=== PATIENT | female | born 1950 | race Hispanic/Latino ===

== ENCOUNTER 2017-09-06 09:51 | Emergency (ER) | payer BC, MEDICARE ==
[~2017-09-06] VITALS: Ht 160 cm; Wt 82.6 kg
[~2017-09-06 09:51] MED LIST: Aspirin PO; CELEBREX100 MG PO; FISH OIL 1,0001 EAC2; GLYBURIDE-METF1 EAC1 PO; LIPITOR20 MG PO; LISINOPRIL-HCT1 EACH PO; VITAMIN D1000 UNIT
--- OUTSIDE RECORDS SUMMARY | 2017-09-06 09:53 | XMS REPORT | Clinical Summary ---
Author Author NAY [facility] [employer] [facility] Address Unknown Phone Unavailable Care Team Providers Care Garbage Stoker Name Role Phone PCP Unavailable Allergies Active Allergy Reactions Severity Noted Date Comments Morphine 08/10/2017 Nausea Current Medications Not on file Active Problems Not on file Encounters Date Type Specialty Care Team Description 08/10/2017 Emergency Emergency Medicine Sherrill Alfaro, Chest pain, unspecified MD type (Primary Dx);Leg swelling;Leg numbness 08/10/2017 Orders Only General Internal Medicine after 09/05/2016 Social History Tobacco Use Types Packs/Day Years Used Date Never Assessed Sex Assigned at Date Recorded Not on file Last Filed Vital Signs Vital Sign Reading Time Taken Blood Pressure 113/58 08/10/2017 10:58 PM DATA ENTRY SPECIALIST Pulse 87 08/10/2017 10:58 PM DATA ENTRY SPECIALIST Temperature 36.6 C (97.8 F) 08/10/2017 10:58 PM DATA ENTRY SPECIALIST Respiratory Rate 17 08/10/2017 10:58 PM DATA ENTRY SPECIALIST Oxygen Saturation 99% 08/10/2017 10:58 PM DATA ENTRY SPECIALIST Inhaled Oxygen - - Concentration Weight 79.4 kg (175 lb) 08/10/2017 5:43 PM DATA ENTRY SPECIALIST Height 157.5 cm (5' 2") 08/10/2017 5:43 PM DATA ENTRY SPECIALIST Body Mass Index 32.01 08/10/2017 5:43 PM DATA ENTRY SPECIALIST Plan of Treatment Not on file Results * PERIPHERAL VASCULAR REPORT - SCAN (08/11/2017 7:20 AM) * ED ECG Interpretation (08/10/2017 10:37 PM) Narrative Sherrill Alfaro MD 08/10/2017 10:37 PM ECG/EKG Interpretation Date/Time: 08/10/2017 5:37 PM Performed by: SHERRILL ALFARO Authorized by: SHERRILL ALFARO The ECG was interpreted by ED physician. This ECG was not compared with previous ECG(s).The ECG is interpreted as sinus rhythm. Rate is normal rate. Heart rate is 83 BPM. Conduction: conduction normal. ST segments normal. Clinical Impression: non-specific ECG and abnormal ECGECG reviewed and does not meet STEMI criteria. Patient tolerance: Patient tolerated the procedure well with no immediate complications * Venous doppler legs bilateral (08/10/2017 10:15 PM) Component Value Ref Range Ejection Fraction Specimen Performing Laboratory [facility] Impressions Right Impression 1. There is no deep venous obstruction in the common femoral, profunda femoral, femoral, popliteal, posterior tibial or peroneal veins. 2. There is no superficial venous obstruction in the great saphenous vein. Left Impression 1. There is no deep venous obstruction in the common femoral, profunda femoral, femoral, popliteal, posterior tibial or peroneal veins. 2. There is no superficial venous obstruction in the great saphenous vein. Conclusions Summary Venous duplex imaging and compression of the bilateral lower extremities were performed. The veins were adequately visualized. The bilateral venous systems were patent and compressible with no evidence of thrombus. The venous Doppler waveforms were phasic with respiration . Signature Velocities are measured in cm/s ; Diameters are measured in cm Narrative PV LAB - Lower Extremities DVT Study Demographics Patient Name Raquel LANG of Study 08/10/2017 [id number] Visit Number [id number] Female Accession Number [id number] [facility] 1950 [id number] SonographerTonya K. Aniltawny Alfaro T Physician , FOSTER Procedure Type of Study: Veins: Lower Extremities DVT Study, VENOUS DOPPLER LEG, BILATERAL. Indications for Study:Leg swelling and Leg pain . Patient Status:STAT. Study Location:Portable. Technical Quality:Adequate visualization. - Results were reported. Risk Factors History of Disease + + + + !Diagnosis !Date!Comments ! + + + + !History/Risk Factors: !08/10/2017!DM ! !!! Bilateral LE pain and swelling! !!!LLE numbness! + + + + Procedure Note Interface, External Ris In - 08/11/2017 6:12 AM DATA ENTRY SPECIALIST PV LAB - Lower Extremities DVT Study Demographics Patient Name YURI LANG Date of Study 08/10/2017 Age 67 Visit Number [id number] Gender Female Accession Number [id number] Date of 1950 Referring Sherrill You Room Number ED27 Physician Dominic Cardiac Cath Lab Radiology Technologist Lyubov Alfaro T Physician , FOSTER Procedure Type of Study: Veins: Lower Extremities DVT Study, VENOUS DOPPLER LEG, BILATERAL. Indications for Study:Leg swelling and Leg pain . Patient Status:STAT. Study Location:Portable. Technical Quality:Adequate visualization. - Results were reported. Risk Factors History of Disease + + + + !Diagnosis !Date !Comments ! + + + + !History/Risk Factors: !08/10/2017!DM ! ! ! !Bilateral LE pain and swelling ! ! ! !LLE numbness ! + + + + Impressions Right Impression 1. There is no deep venous obstruction in the common femoral, profunda femoral, femoral, popliteal, posterior tibial or peroneal veins. 2. There is no superficial venous obstruction in the great saphenous vein. Left Impression 1. There is no deep venous obstruction in the common femoral, profunda femoral, femoral, popliteal, posterior tibial or peroneal veins. 2. There is no superficial venous obstruction in the great saphenous vein. Conclusions Summary Venous duplex imaging and compression of the bilateral lower extremities were performed. The veins were adequately visualized. The bilateral venous systems were patent and compressible with no evidence of thrombus. The venous Doppler waveforms were phasic with respiration . Signature Velocities are measured in cm/s ; Diameters are measured in cm * CBC with platelet count + automated diff (08/10/2017 8:35 PM) Component Value Ref Range WBC 9.1 3.5 - 10.5 K/ L RBC 3.59 (L) 3.93 - 5.22 M/ L Hemoglobin 11.3 11.2 - 15.7 GM/DL Hematocrit 33.4 (L) 34.1 - 44.9 % MCV 93.0 79.4 - 94.8 fL MCH 31.5 25.6 - 32.2 pg MCHC 33.8 32.2 - 35.5 GM/DL RDW 13.5 11.7 - 14.4 % Platelets 231 150 - 450 K/CU MM MPV 10.0 9.4 - 12.3 fL nRBC 0 0 - 0 /100 WBC % Neutros 67 % % Lymphs 27 % % Monos 4 % % Eos 2 % % Baso 0 % # Neutros 6.02 1.56 - 6.13 K/ L # Lymphs 2.43 1.18 - 3.74 K/ L # Monos 0.35 0.24 - 0.36 K/ L # Eos 0.19 0.04 - 0.36 K/ L # Baso 0.03 0.01 - 0.08 K/ L Immature 0 0 - 1 % Granulocytes-Relative Specimen Performing Laboratory Blood - Arm, [place] [address] * Troponin I (08/10/2017 8:35 PM) Component Value Ref Range Troponin I <0.01 0.00 - 0.03 ng/mL Specimen Performing Laboratory Blood - Arm, [place] [address] Narrative Troponin I (TnI) levels must be interpreted in the context of the presenting symptoms and the clinical findings. Elevated TnI levels indicate myocardial damage, but are not specific for ischemic heart disease. Elevated TnI levels are seen in patients with other cardiac conditions (including myocarditis and congestive heart failure), and slight TnI elevations occur in patients with other conditions, including sepsis, renal failure, acidosis, acute neurological disease, and persistent tachyarrhythmia. * CBC with platelet count + automated diff (08/10/2017 8:35 PM) Specimen Performing Laboratory Blood Narrative The following orders were created for panel order CBC with platelet count + automated diff. Procedure Abnormality Status --------- - ------ CBC with platelet count ...[[id number]]AbnormalFinal result Please view results for these tests on the individual orders. * B-type Natriuretic Factor (BNP) (08/10/2017 8:35 PM) Component Value Ref Range BNP 41 0 - 100 pg/mL Specimen Performing Laboratory Blood - Arm, [place] [address] * Magnesium (08/10/2017 8:35 PM) Component Value Ref Range Magnesium 1.9 1.6 - 2.6 mg/dL Specimen Performing Laboratory Blood - Arm, [place] [address] * Creatine Kinase (CK), Total and MB (08/10/2017 8:35 PM) Component Value Ref Range Total CK 74 29 - 200 U/L CK-MB 1.0 0.0 - 6.6 ng/mL MB Relative Index 1.4 % Specimen Performing Laboratory Blood - Arm, [place] [address] Narrative CK-MB Reference Range: <6.7Normal 6.7-10.0Borderline >10.0 Abnormal * Basic Metabolic Panel (08/10/2017 8:35 PM) Component Value Ref Range Sodium 144 136 - 145 meq/L Potassium 3.8 3.5 - 5.1 meq/L Chloride 107 98 - 107 meq/L CO2 25 22 - 29 meq/L BUN 26 (H) 7 - 21 mg/dL Creatinine 0.98 0.57 - 1.25 mg/dL Glucose 204 (H) 70 - 105 mg/dL Calcium 9.9 8.4 - 10.2 mg/dL EGFR 56Comment: ESTIMATED GFR IS NOT ACCURATE mL/min/1.73 sq m CREATININE CLEARANCE IN PREDICTING GLOMERULAR FILTRATION RATE. ESTIMATED GFR IS NOT APPLICABLE FOR DIALYSIS PATIENTS. Specimen Performing Laboratory Blood - Arm, Right [facility] [address] [place] [id number] * ECG 12 lead (08/10/2017 6:54 PM) Only the most recent of 2 results within the time period is included. Specimen Performing Laboratory GE MUSE Narrative Ventricular Rate 111 BPM Atrial Rate 111 BPM P-R Interval 156 ms QRS Duration 86 ms Q-T Interval 338 ms QTC Calculation(Bazett) 459 ms P [place] 54 degrees R [place] 56 degrees T [place] 3 degrees Sinus tachycardia T wave abnormality, consider inferior ischemia Abnormal ECG When compared with ECG of 10-AUG-2017 18:53, No significant change was found Confirmed by MD MARIELLA, IHAB ([id number]) on 08/12/2017 2:02:57 PM Procedure Note Interface, External Ris In - 08/12/2017 2:03 PM DATA ENTRY SPECIALIST Ventricular Rate 111 BPM Atrial Rate 111 BPM P-R Interval 156 ms QRS Duration 86 ms Q-T Interval 338 ms QTC Calculation(Bazett) 459 ms P [place] 54 degrees R [place] 56 degrees T [place] 3 degrees Sinus tachycardia T wave abnormality, consider inferior ischemia Abnormal ECG When compared with ECG of 10-AUG-2017 18:53, No significant change was found Confirmed by MD MARIELLA, IHAB ([id number]) on 08/12/2017 2:02:57 PM * XR chest 2 views (08/10/2017 6:07 PM) Specimen Performing Laboratory GE RIS Narrative FINAL REPORT INDICATION: CHEST PAIN NUMBNESS COMPARISON: None. TECHNIQUE: Chest radiograph, two views, PA and lateral. FINDINGS / IMPRESSION: Lung volumes are normal and there is no evidence of pneumonia or pulmonary edema. Cardiac and mediastinal contours are normal. There is no pneumothorax or pleural effusion. Osseous structures are notable for osteopenia and moderate compression deformity of a midthoracic vertebral body. Signed: Siva Kelly MD Report Verified Date/Time:08/10/2017 18:19:16 Reading Location: [facility] B1 C013X Ortho Consult Reading Room Procedure Note Interface, External Ris In - 08/10/2017 6:21 PM DATA ENTRY SPECIALIST FINAL REPORT INDICATION: CHEST PAIN NUMBNESS COMPARISON: None. TECHNIQUE: Chest radiograph, two views, PA and lateral. FINDINGS / IMPRESSION: Lung volumes are normal and there is no evidence of pneumonia or pulmonary edema. Cardiac and mediastinal contours are normal. There is no pneumothorax or pleural effusion. Osseous structures are notable for osteopenia and moderate compression deformity of a midthoracic vertebral body. Signed: Siva Kelly MD Report Verified Date/Time: 08/10/2017 18:19:16 Reading Location: [facility] C013X Ortho Consult Reading Room after 09/05/2016
--- OUTSIDE RECORDS SUMMARY | 2017-09-06 09:54 | XMS REPORT ---
Author Author [facility] Address Unknown Phone Unavailable Care Team Providers Care Research Project Manager Name Role Phone SHERRILL RODRIGUES Unavailable Unavailable ORIN SEBASTIAN Unavailable Unavailable Problems This patient has no known problems. Allergies, Adverse Reactions, Alerts This patient has no known allergies or adverse reactions. Medications This patient has no known medications. Results Test Description Test Time Test Comments Text Results Atomic Results Result Comments CREATINE KINASE (CK), TOTAL AND MB 2017-08-10 21:24:00 CREATINE KINASE TOTAL (BEAKER) (test vcxl=729) 74 U/L 29-200 CREATINE KINASE-MB (BEAKER) (test tpdp=591) 1.0 ng/mL 0.0-6.6 CREATINE KINASE-MB INDEX (BEAKER) (test xfsp=132) 1.4 % CK-MB Reference Range:<6.7 Normal6.7-10.0 Borderline>10.0 AbnormalTROPONIN [id number] 21:24:00* Test Item Value Reference Range Comments TROPONIN I (BEAKER) (test goca=470) < ng/mL 0.00-0.03 Troponin I (TnI) levels must be interpreted [...] failure, acidosis, acute neurological disease, and persistent tachyarrhythmia.B-TYPE NATRIURETIC FACTOR (BNP) 21:23:00* Test Item Value Reference Range Comments B-TYPE NATRIURETIC PEPTIDE (BEAKER) (test zyso=022) 41 pg/mL 0-100 [id number] 21:17:00* Test Item Value Reference Range Comments MAGNESIUM (BEAKER) (test wxwd=829) 1.9 mg/dL 1.6-2.6 BASIC METABOLIC [id number] 21:17:00* Test Item Value Reference Range Comments SODIUM (BEAKER) (test qivb=180) 144 meq/L 136-145 POTASSIUM (BEAKER) (test tavl=740) 3.8 meq/L 3.5-5.1 CHLORIDE (BEAKER) (test hryh=701) 107 meq/L 98-107 CO2 (BEAKER) (test pffe=072) 25 meq/L 22-29 BLOOD UREA NITROGEN (BEAKER) (test pdts=906) 26 mg/dL 7-21 CREATININE (BEAKER) (test eipv=365) 0.98 mg/dL 0.57-1.25 GLUCOSE RANDOM (BEAKER) (test plml=253) 204 mg/dL 70-105 CALCIUM (BEAKER) (test llon=101) 9.9 mg/dL 8.4-10.2 EGFR (BEAKER) (test xsgm=4395) 56 mL/min/1.73 sq m ESTIMATED GFR IS NOT ACCURATE CREATININE CLEARANCE IN PREDICTING GLOMERULAR FILTRATION RATE. ESTIMATED GFR IS NOT APPLICABLE FOR DIALYSIS PATIENTS. CBC W/PLT COUNT & AUTO [id number] 20:48:00* Test Item Value Reference Range Comments WHITE BLOOD CELL COUNT (BEAKER) (test evsr=675) 9.1 K/ L 3.5-10.5 RED BLOOD CELL COUNT (BEAKER) (test elem=891) 3.59 M/ L 3.93-5.22 HEMOGLOBIN (BEAKER) (test oqsm=725) 11.3 GM/DL 11.2-15.7 HEMATOCRIT (BEAKER) (test kkac=928) 33.4 % 34.1-44.9 MEAN CORPUSCULAR VOLUME (BEAKER) (test jyck=680) 93.0 fL 79.4-94.8 MEAN CORPUSCULAR HEMOGLOBIN (BEAKER) (test wnwk=070) 31.5 pg 25.6-32.2 MEAN CORPUSCULAR HEMOGLOBIN CONC (BEAKER) (test yxgz=546) 33.8 GM/DL 32.2- 35.5 RED CELL DISTRIBUTION WIDTH (BEAKER) (test hsim=993) 13.5 % 11.7-14.4 PLATELET COUNT (BEAKER) (test znrf=402) 231 K/CU MM 150-450 MEAN PLATELET VOLUME (BEAKER) (test ovdw=894) 10.0 fL 9.4-12.3 NUCLEATED RED BLOOD CELLS (BEAKER) (test wkky=144) 0 /100 WBC 0-0 NEUTROPHILS RELATIVE PERCENT (BEAKER) (test jprx=371) 67 % LYMPHOCYTES RELATIVE PERCENT (BEAKER) (test fiwt=864) 27 % MONOCYTES RELATIVE PERCENT (BEAKER) (test wesh=016) 4 % EOSINOPHILS RELATIVE PERCENT (BEAKER) (test jnhy=573) 2 % BASOPHILS RELATIVE PERCENT (BEAKER) (test lodh=230) 0 % NEUTROPHILS ABSOLUTE COUNT (BEAKER) (test sevh=441) 6.02 K/ L 1.56-6.13 LYMPHOCYTES ABSOLUTE COUNT (BEAKER) (test ofwc=952) 2.43 K/ L 1.18-3.74 MONOCYTES ABSOLUTE COUNT (BEAKER) (test stew=688) 0.35 K/ L 0.24-0.36 EOSINOPHILS ABSOLUTE COUNT (BEAKER) (test ofdp=374) 0.19 K/ L 0.04-0.36 BASOPHILS ABSOLUTE COUNT (BEAKER) (test bfxg=440) 0.03 K/ L 0.01-0.08 IMMATURE GRANULOCYTES-RELATIVE PERCENT (BEAKER) (test mlez=0759) 0 % 0-1 RAD, CHEST, 2 [id number] 18:19:00Reason for exam:->CHEST PAINReason for exam:->NUMBNESSFINAL REPORT INDICATION: CHEST PAINNUMBNESS COMPARISON: None. TECHNIQUE: Chest radiograph, two views, PA and lateral. FINDINGS / IMPRESSION:Lung volumes are normal and there is no evidence of pneumonia or pulmonary edema. Cardiac and mediastinal contours are normal. There is no pneumothorax or pleural effusion. Osseous structures are notable for osteopenia and moderate compression deformity of a midthoracic vertebral body. Signed: Siva Kelly MDReport Verified Date/Time: 08/10/2017 18:19: 16 Reading Location: [facility] C013X Ortho Consult Reading Room ICAL SPINE 4 OR 5 VIEWS [place] [address] Patient Name: YURI ENRIQUEZ MR #: [id number] : 1950 Age/Sex: 67/F Req #: [id number] [facility] Physician: Ordered by: ORIN SEBASTIAN MD Report #: [id number] Location: [facility] Room/Bed: Procedure: [id number] DX/CERVICAL SPINE 4 OR 5 VIEWS Exam Date: 04/10/17 Exam Time: 1130 REPORT STATUS: Signed PROCEDURE: C-SPINE COMPLETE COMPARISON: None. INDICATIONS: CERVICALGIA FINDINGS: C1 through the C7 superior endplate are visualized on the lateral view. The spine is in anatomic alignment without evidence of fracture or subluxation. The facets and spinous processes are normally aligned without significant arthropathy. Anterior, inferior osteophytic spur at C5. No appreciable disc space narrowing. No significant foraminal narrowing. Alignment is maintained on AP image. Lateral masses of C1 are symmetric. The dens is intact. Skull base and upper chest are unremarkable. CONCLUSION: Mild degenerative changes of the lower cervical spine. Dictated by : Ranjana Riley M.D. on 04/10/2017 at 12:54 Electronically approved by: Ranjana Riley M.D. on 04/10/2017 at 12:54 Dictated By : RANJANA RILEY MD [id number] COPY TO: ORIN SEBASTIAN MD
[2017-09-06] MEDS ORDERED: SODIUM CHLORIDE 0.9% 1000ML 1,000 ML IV STA (10:15)
[2017-09-06] MEDS ORDERED: ONDANSETRON HCL INJ 2 MG/ML VIAL IV STA (10:15)
[2017-09-06 10:33] LABS: BASOPHILS % 0.2 % (0.0-1.0); EOSINOPHILS # (AUTO) 0.1 (0.0-0.4); EOSINOPHILS % 0.5 % (0.0-6.0); HEMATOCRIT 35.9 % (34.2-44.1); HEMOGLOBIN 12.5 g/dL (12.0-16.0); LYMPHOCYTES # (AUTO) 0.9 (1.0-3.2); LYMPHOCYTES % 7.9 % (18.0-39.1); MEAN CORPUSCULAR HEMOGLOBIN 31.3 pg (28-32); MEAN CORPUSCULAR HGB CONC 34.8 g/dL (31-35); MEAN CORPUSCULAR VOLUME 89.8 fL (81-99); MONOCYTES # (AUTO) 0.2 (0.2-0.8); NEUTROPHILS # (AUTO) 9.6 (2.1-6.9); NEUTROPHILS % 88.9 % (38.7-80.0); PLATELET COUNT 246 x10e3/uL (140-360); RED CELL DISTRIBUTION WIDTH 12.8 % (11.7-14.4)
[2017-09-06 10:57] LABS: ALANINE AMINOTRANSFERASE 17 IU/L (0-55); ALBUMIN 3.9 g/dL (3.5-5.0); ALBUMIN/GLOBULIN RATIO 1.1 (0.8-2.0); ALKALINE PHOSPHATASE 120 IU/L (40-150); AMYLASE 31 U/L (25-125); ANION GAP 17.6 mmol/L (8-16); BLOOD UREA NITROGEN 18 mg/dL (7-26); BUN/CREATININE RATIO 21 (6-25); CALCIUM 9.7 mg/dL (8.4-10.2); CARBON DIOXIDE 23 mmol/L (22-29); CHLORIDE 105 mmol/L (98-107); CREATINE KINASE 25 IU/L (29-168); CREATININE, SERUM 0.86 mg/dL (0.57-1.11); EST GLOMERULAR FILTRATION RATE > 60 ML/MIN (60-); GLUCOSE 204 mg/dL (74-118); LIPASE 29 U/L (8-78); POTASSIUM 3.6 mmol/L (3.5-5.1); SODIUM 142 mmol/L (136-145)
[2017-09-06] MEDS ORDERED: KETOROLAC TROMETHAMINE 30 MG/ML VIAL IV STA (12:02)
[2017-09-06 12:29] LABS: BILIRUBIN,URINE NEGATIVE (NEGATIVE); KETONES,URINE NEGATIVE (NEGATIVE); LEUKOCYTE ESTERASE ,URINE NEGATIVE (NEGATIVE); NITRITE,URINE NEGATIVE (NEGATIVE); PROTEIN,URINE DIPSTICK NEGATIVE (NEGATIVE); URINE UROBILINOGEN 0.2 mg/dL (0.2 - 1)
[2017-09-06 12:30] LABS: CLARITY,URINE CLEAR (CLEAR); COLOR,URINE YELLOW (YELLOW)
[2017-09-06 12:57] LABS: EPITHELIAL CELLS,URINE RARE /LPF; TRANSITIONAL EPI CELLS,URINE RARE
--- NOTE | 2017-09-06 14:30 | Diagnostic Imaging Report ---
PROCEDURE: CT ABDOMEN AND PELVIS WITH CONTRAST TECHNIQUE: The abdomen and pelvis were scanned utilizing a multidetector helical scanner from the diaphragm to the lesser trochanter after the IV administration of 100 cc of Isovue 370 and the oral administration of water. Coronal and sagittal multiplanar reformations were obtained. COMPARISON: Patients [facility], CT, CT ABDOMEN/PELVIS W CONTRAST, 01/12/2011, 12:01. INDICATIONS: UPPER ABDOMEN PAIN FINDINGS: LOWER THORAX: Mild bibasilar atelectatic changes. HEPATOBILIARY: Decreased attenuation of the hepatic parenchyma compared to the spleen, consistent with fatty infiltration. Normal hepatic contour. Previously described ill-defined areas of apparent enhancement in hepatic segment VIII and VII at the dome (series 2, images 16 and 17). The are decreased in size when compared to prior exam, measuring 1.0 x 0.9 cm (previously measured 1.6 x 1.6 cm) or stable measuring 0.8 x 0.8 cm (previously 0.8 x 0.9 cm). No suspicious focal lesions. No biliary ductal dilation. Cholecystectomy clips. SPLEEN: No splenomegaly. PANCREAS: No focal masses or ductal dilatation. Mild atrophy and fatty replacement. ADRENALS: No adrenal nodules. KIDNEYS/URETERS: No hydronephrosis, stones, or solid mass lesions. Cortical scarring in the right kidney. A previously described cystic lesion in the anterior lower right kidney is not seen in current exam. PELVIC ORGANS/BLADDER: Bladder is mostly decompressed and grossly unremarkable. No adnexal masses. PERITONEUM / RETROPERITONEUM: No free air or fluid. LYMPH NODES: No lymphadenopathy. VESSELS: Atherosclerotic calcification of the abdominal aorta and iliac vessels. Celiac trunk, superior and inferior mesenteric, and bilateral renal arteries are patent. Portal, superior mesenteric, and splenic veins are patent. GI TRACT: No distention or wall thickening. BONES AND SOFT TISSUES: Unremarkable. IMPRESSION: 1. no acute abdominopelvic abnormalities. 2. Diffuse hepatic steatosis. Ill-defined areas of apparent enhancement at the hepatic dome are stable or decreased in size when compared to prior exam and likely represent focal areas of fatty sparing. No suspicious hepatic lesions. Brian Day M.D. Dictated by: Brian Day M.D. on 09/06/2017 at 14:30 Electronically approved by: Brian Day M.D. on 09/06/2017 at 14:30
[2017-09-06 16:28] VITALS: BP 138/75
[2017-09-06] MEDS ORDERED: SODIUM CHLORIDE 0.9% 50ML 50 ML ONE (20:14)
[2017-09-06] MEDS ORDERED: IOPAMIDOL 370 MG/ML 200 ML INFUS..BTL INJ ONE (20:14)
== END 2017-09-06 16:42 | disposition home or self-care (01) ==
LOC: ER 09:51
DX: R10.13 Epigastric pain (principal); R11.2 Nausea with vomiting, unspecified; I10 Essential (primary) hypertension; E11.9 Type 2 diabetes mellitus without complications; I25.10 Atherosclerotic heart disease of native coronary artery without angina pectoris; E78.5 Hyperlipidemia, unspecified
CPT/HCPCS: 36415; 74177; 80053; 81001; 82150; 82550; 82553; 83690; 83880; 84484; 85025; 93005; 99284; J1885; J2405; J7030; Q9967

== ENCOUNTER 2017-10-30 13:00 | Outpatient (RCR) | payer BC, MEDICARE | END 2017-11-04 | LOC: PT 13:00 | PROVIDERS: ATTEND Neurological Surgery | DX: M48.062 Spinal stenosis, lumbar region with neurogenic claudication (principal); M53.86 Other specified dorsopathies, lumbar region; R26.2 Difficulty in walking, not elsewhere classified; M62.81 Muscle weakness (generalized) | CPT/HCPCS: 97110 ×3; 97162; G8978; G8979 ==

== ENCOUNTER 2017-12-03 11:00 | Outpatient (RCR) | payer BC, MEDICARE | END 2017-12-05 | LOC: PT 11:00 | PROVIDERS: ATTEND Neurological Surgery | DX: M48.062 Spinal stenosis, lumbar region with neurogenic claudication (principal); M53.86 Other specified dorsopathies, lumbar region; R26.2 Difficulty in walking, not elsewhere classified; M62.81 Muscle weakness (generalized) | CPT/HCPCS: 97110 ×8; 97139; G8978; G8979 ==

== ENCOUNTER 2017-12-10 13:11 | Outpatient (RCR) | payer BC, MEDICARE | END 2018-01-04 | LOC: PT 13:11 | PROVIDERS: ATTEND Neurological Surgery | DX: M48.062 Spinal stenosis, lumbar region with neurogenic claudication (principal); M53.86 Other specified dorsopathies, lumbar region; M62.81 Muscle weakness (generalized); R26.2 Difficulty in walking, not elsewhere classified ==

== ENCOUNTER → 2020-05-17 | Outpatient (CLI) | payer MEDICARE ==
[~2020-05-17] MED LIST changes: +REGADENOSON 0.4 MG/5 ML SYR IV ONE
== END ==
LOC: NM 09:31
PROVIDERS: ATTEND Internal Medicine Cardiovascular Disease
DX: R07.9 Chest pain, unspecified (principal)
CPT/HCPCS: 78452; 93017; 93306; A9502; J2785

== ENCOUNTER 2020-11-29 11:56 | Emergency (ER) | payer BC, MEDICARE ==
[~2020-11-29] VITALS: Ht 160 cm; Wt 82.6 kg
[~2020-11-29 11:56] MED LIST changes: -REGADENOSON 0.4 MG/5 ML SYR IV ONE
[2020-11-29] MEDS ORDERED: ONDANSETRON HCL INJ 2MG/ML 2ML 2 MG/ML VIAL IV PRN (12:30)
[2020-11-29 12:36] LABS: BASOPHILS % 0.3 % (0.0-1.0); EOSINOPHILS # (AUTO) 0.2 (0.0-0.4); HEMATOCRIT 32.1 % (34.2-44.1); HEMOGLOBIN 10.5 g/dL (12.0-16.0); LYMPHOCYTES # (AUTO) 1.4 (1.0-3.2); MEAN CORPUSCULAR HEMOGLOBIN 29.4 pg (28-32); MEAN CORPUSCULAR HGB CONC 32.7 g/dL (31-35); MEAN CORPUSCULAR VOLUME 89.9 fL (81-99); MONOCYTES # (AUTO) 0.3 (0.2-0.8); MONOCYTES % 3.3 % (4.4-11.3); NEUTROPHILS # (AUTO) 5.7 (2.1-6.9); PLATELET COUNT 248 x10e3/uL (140-360); RED BLOOD COUNT 3.57 x10e6/uL (3.6-5.1); RED CELL DISTRIBUTION WIDTH 14.2 % (11.7-14.4)
[2020-11-29 13:01] LABS: ALBUMIN 3.6 g/dL (3.5-5.0); ALBUMIN/GLOBULIN RATIO 1.1 (0.8-2.0); CALCIUM 9.1 mg/dL (8.4-10.2); CREATININE, SERUM 1.04 mg/dL (0.57-1.11)
[2020-11-29] MEDS ORDERED: IOPAMIDOL 370 MG/ML 200 ML INFUS..BTL INJ ONE (13:22)
[2020-11-29] MEDS ORDERED: SODIUM CHLORIDE 0.9% 50ML 50 ML ONE (13:22)
[2020-11-29 14:30] LABS: COLOR,URINE YELLOW (YELLOW)
[2020-11-29 14:31] LABS: CLARITY,URINE CLEAR (CLEAR); KETONES,URINE NEGATIVE (NEGATIVE); LEUKOCYTE ESTERASE ,URINE NEGATIVE (NEGATIVE); NITRITE,URINE NEGATIVE (NEGATIVE); PROTEIN,URINE DIPSTICK NEGATIVE (NEGATIVE); URINE UROBILINOGEN 0.2 mg/dL (0.2 - 1)
[2020-11-29 14:42] LABS: EPITHELIAL CELLS,URINE RARE /LPF
[2020-11-29] MEDS ORDERED: DICYCLOMINE HCL10 MG PO (14:53)
== END 2020-11-29 15:13 | disposition home or self-care (01) ==
LOC: ER 12:18
DX: R10.31 Right lower quadrant pain (principal); R11.0 Nausea; E11.65 Type 2 diabetes mellitus with hyperglycemia; I10 Essential (primary) hypertension; E78.5 Hyperlipidemia, unspecified; E78.00 Pure hypercholesterolemia, unspecified
CPT/HCPCS: 36415; 74177; 80053; 81001; 83690; 84484; 85025; 93005; 99284; Q9967

== ENCOUNTER 2021-07-18 13:02 | Observation (INO) | payer BC, MEDICARE ==
[~2021-07-18] VITALS: Ht 157.5 cm; Wt 74.8 kg
[~2021-07-18 13:02] MED LIST changes: +DICYCLOMINE HCL10 MG PO
[2021-07-18 13:58] LABS: BASOPHILS % 0.4 % (0.0-1.0); EOSINOPHILS # (AUTO) 0.1 (0.0-0.4); EOSINOPHILS % 1.5 % (0.0-6.0); HEMATOCRIT 31.4 % (34.2-44.1); HEMOGLOBIN 10.2 g/dL (12.0-16.0); LYMPHOCYTES % 23.6 % (18.0-39.1); MEAN CORPUSCULAR HEMOGLOBIN 28.7 pg (28-32); MEAN CORPUSCULAR HGB CONC 32.5 g/dL (31-35); MEAN CORPUSCULAR VOLUME 88.5 fL (81-99); MONOCYTES # (AUTO) 0.4 (0.2-0.8); MONOCYTES % 4.4 % (4.4-11.3); NEUTROPHILS # (AUTO) 5.8 (2.1-6.9); NEUTROPHILS % 69.7 % (38.7-80.0); PLATELET COUNT 286 x10e3/uL (140-360); RED BLOOD COUNT 3.55 x10e6/uL (3.6-5.1); RED CELL DISTRIBUTION WIDTH 14.2 % (11.7-14.4)
[2021-07-18 14:06] LABS: INR 0.95; PROTHROMBIN TIME 13.4 seconds (11.9-14.5)
[2021-07-18 14:07] LABS: PARTIAL THROMBOPLASTIN TIME 25.2 seconds (23.8-35.5)
[2021-07-18 14:15] LABS: ALBUMIN 3.8 g/dL (3.5-5.0); ALBUMIN/GLOBULIN RATIO 1.2 (0.8-2.0); ANION GAP 10.8 mmol/L (8-16); CALCIUM 9.8 mg/dL (8.4-10.2); CREATININE, SERUM 0.97 mg/dL (0.57-1.11); POTASSIUM 3.8 mmol/L (3.5-5.1)
[2021-07-18 14:25] LABS: CREATINE KINASE MB 0.3 ng/mL (0-5.0)
[2021-07-18] MEDS ORDERED: ASPIRIN 81 MG CHEW TAB PO NR (14:45)
[2021-07-18] MEDS ORDERED: ONDANSETRON HCL INJ 2MG/ML 2ML 2 MG/ML VIAL IV PRN (15:00)
[2021-07-18] MEDS ORDERED: DEXTROSE 50% SYRINGE 50 ML IV PRN (15:00)
[2021-07-18] MEDS ORDERED: NITROGLYCERIN 0.4 MG SUBL SL PRN (15:00)
[2021-07-18] MEDS ORDERED: Morphine 2mg Syringe 2 MG/ML SYR IV PRN (15:00)
[2021-07-18] MEDS: FAMOTIDINE 20 MG/2 ML VIAL IV SCH (15:23)
[2021-07-18] MEDS ORDERED: ASPIRIN 81 MG CHEW TAB ONE (15:59)
[2021-07-18] MEDS: INSULIN LISPRO 100 UNIT/1 ML 3ML VIAL SQ SCH ×2 (16:16→21:00)
[2021-07-18 19:54] LABS: CHOL/HDL RATIO 3.5 (3.0-3.6)
[2021-07-18 20:55] VITALS: BP 127/62
[2021-07-18 20:56] VITALS: BP 127/62
[2021-07-18 21:00] VITALS: BP 127/62
[2021-07-19 00:37] VITALS: BP 122/66
[2021-07-19] MEDS: FAMOTIDINE 20 MG/2 ML VIAL IV SCH (03:00)
[2021-07-19 04:01] VITALS: BP 122/66
[2021-07-19] MEDS ORDERED: METOPROLOL TART25 MG PO (04:18)
[2021-07-19] MEDS ORDERED: AMLODIPINE BESY10 MG PO (04:19)
[2021-07-19 04:36] VITALS: BP 133/66
[2021-07-19 05:24] LABS: BASOPHILS % 0.6 % (0.0-1.0); EOSINOPHILS # (AUTO) 0.2 (0.0-0.4); EOSINOPHILS % 2.3 % (0.0-6.0); HEMATOCRIT 30.8 % (34.2-44.1); HEMOGLOBIN 10.2 g/dL (12.0-16.0); LYMPHOCYTES # (AUTO) 2.2 (1.0-3.2); LYMPHOCYTES % 31.2 % (18.0-39.1); MEAN CORPUSCULAR HEMOGLOBIN 28.9 pg (28-32); MEAN CORPUSCULAR HGB CONC 33.1 g/dL (31-35); MEAN CORPUSCULAR VOLUME 87.3 fL (81-99); MONOCYTES # (AUTO) 0.3 (0.2-0.8); MONOCYTES % 4.4 % (4.4-11.3); NEUTROPHILS # (AUTO) 4.3 (2.1-6.9); NEUTROPHILS % 61.1 % (38.7-80.0); PLATELET COUNT 267 x10e3/uL (140-360); RED BLOOD COUNT 3.53 x10e6/uL (3.6-5.1); RED CELL DISTRIBUTION WIDTH 14.3 % (11.7-14.4)
[2021-07-19 05:55] LABS: ALBUMIN 3.5 g/dL (3.5-5.0); ANION GAP 10.6 mmol/L (8-16); CALCIUM 9.7 mg/dL (8.4-10.2); CHOL/HDL RATIO 4.2 (3.0-3.6); CREATININE, SERUM 0.85 mg/dL (0.57-1.11); POTASSIUM 3.6 mmol/L (3.5-5.1)
[2021-07-19 06:17] LABS: CREATINE KINASE MB 0.4 ng/mL (0-5.0)
[2021-07-19] MEDS: INSULIN LISPRO 100 UNIT/1 ML 3ML VIAL SQ SCH ×2 (07:30→11:30)
[2021-07-19] MEDS ORDERED: FAMOTIDINE 20 MG TAB PO SCH (07:30)
[2021-07-19] MEDS ORDERED: METOPROLOL TARTRATE 25 MG TAB PO SCH (08:00)
[2021-07-19] MEDS ORDERED: DICYCLOMINE HCL 10 MG CAP PO SCH (09:00)
[2021-07-19] MEDS ORDERED: ASPIRIN 81 MG ENTERIC COATED PO SCH (09:00)
[2021-07-19] MEDS ORDERED: FENOFIBRATE 145 MG TAB PO SCH (09:00)
[2021-07-19] MEDS ORDERED: AMLODIPINE BESYLATE 10 MG TAB PO SCH (09:00)
[2021-07-19 09:22] VITALS: BP 146/65
[2021-07-19 09:30] VITALS: BP 146/65
[2021-07-19] MEDS ORDERED: FENOFIBRATE145 MG PO (12:33)
[2021-07-19] MEDS ORDERED: ASCORBIC ACID500 MG PO (12:33)
[2021-07-19] MEDS ORDERED: Zinc Sulfate PO (12:33)
[2021-07-19] MEDS ORDERED: FAMOTIDINE20 MG PO (12:33)
[2021-07-19] MEDS ORDERED: LORATADINE10 MG PO (12:33)
[2021-07-19] MEDS ORDERED: Cholecalciferol PO (12:33)
[2021-07-19 13:02] VITALS: BP 138/61
[2021-07-19] MEDS ORDERED: ONDANSETRON HCL 4 MG ORAL DISINTEGRATING TAB PO PRN (13:30)
[2021-07-19] MEDS ORDERED: ASCORBIC ACID 500 MG TAB PO SCH (17:00)
[2021-07-19] MEDS ORDERED: ENOXAPARIN SOD INJ 40 MG/0.4 ML SYR SC SCH (17:00)
[2021-07-19] MEDS ORDERED: ATORVASTATIN 20 MG TAB PO SCH (21:00)
[2021-07-20] MEDS ORDERED: LORATADINE 10 MG TAB PO SCH (09:00)
[2021-07-20] MEDS ORDERED: ZINC SULFATE 50 MG CAP PO SCH (09:00)
[2021-07-20] MEDS ORDERED: CHOLECALCIFEROL 1,000 UNIT TAB PO SCH (09:00)
== END 2021-07-19 13:45 | disposition home or self-care (01) ==
LOC: ER 13:19 → ERHOLD 15:34 → IMCU 20:36
PROVIDERS: ADMIT Internal Medicine; ATTEND Internal Medicine
DX: U07.1 COVID-19 (principal); J12.82 Pneumonia due to coronavirus disease 2019; E11.9 Type 2 diabetes mellitus without complications; E66.9 Obesity, unspecified; Z68.30 Body mass index [BMI] 30.0-30.9, adult; R07.89 Other chest pain; E78.5 Hyperlipidemia, unspecified
CPT/HCPCS: 36415 ×2; 71045; 80053 ×2; 80061 ×2; 82550 ×2; 82553 ×2; 82948; 83036; 83735; 83880; 84484 ×2; 85025 ×2; 85610; 85730; 93005; 93306; 94799; 96360; 96372; 99284; G0378 ×2; U0002; J2270

== ENCOUNTER 2024-01-21 10:54 | Emergency (ER) | payer MEDICARE ==
[~2024-01-21] VITALS: Ht 157.5 cm; Wt 88.9 kg
[~2024-01-21 10:54] MED LIST changes: +AMLODIPINE BESY10 MG PO; +ASCORBIC ACID500 MG PO; +ATORVASTATIN CA20 MG PO; +BENICAR20 MG PO; +Cholecalciferol PO; +FAMOTIDINE20 MG PO; +FENOFIBRATE145 MG PO; +JARDIANCE10 MG PO; +LEVOFLOXACIN250 MG PO; +LEVOTHYROXINE25 MCG PO; +LEVOTHYROXINE50 MCG PO; +LORATADINE10 MG PO; +METOPROLOL TART25 MG PO; +REPAGLINIDE0.5 MG PO; +REPAGLINIDE2 MG PO; +ULTRAM 50MG50 MG PO; +Zinc Sulfate PO
[2024-01-21 11:26] VITALS: TEMP 98.4
[2024-01-21 12:57] LABS: CLARITY,URINE CLEAR (CLEAR); COLOR,URINE YELLOW (YELLOW)
[2024-01-21 12:58] LABS: GLUCOSE, URINE 500 (NEGATIVE); KETONES,URINE NEGATIVE (NEGATIVE); LEUKOCYTE ESTERASE ,URINE TRACE (NEGATIVE); NITRITE,URINE NEGATIVE (NEGATIVE); PH,URINE 5.5 (5 - 7); PROTEIN,URINE DIPSTICK NEGATIVE (NEGATIVE)
[2024-01-21 13:00] VITALS: PULSE 61; RESP 16
[2024-01-21 13:02] LABS: BILIRUBIN,URINE NEGATIVE (NEGATIVE); URINE UROBILINOGEN 0.2 mg/dL (0.2 - 1)
[2024-01-21 13:13] LABS: BACTERIA,URINE FEW /HPF; EPITHELIAL CELLS,URINE FEW /LPF; RBC,URINE 0-5 /HPF (0-5); WBC,URINE (MAN) 0-5 /HPF (0-5); YEAST,URINE MANY
[2024-01-21] MEDS ORDERED: FLUCONAZOLE150 MG PO (13:36)
[2024-01-21 13:43] VITALS: BP 120/89; PULSE 61; RESP 16; O2SAT 100
== END 2024-01-21 13:00 | disposition home or self-care (01) ==
LOC: ER 11:39
DX: R30.0 Dysuria (principal); B37.31 Acute candidiasis of vulva and vagina; I10 Essential (primary) hypertension; E11.9 Type 2 diabetes mellitus without complications; E78.5 Hyperlipidemia, unspecified; E03.9 Hypothyroidism, unspecified
CPT/HCPCS: 81001; 99282